=== PATIENT | female | born 1990 | race Caucasian/White ===

== ENCOUNTER 2021-11-01 08:47 | Emergency (ER) | payer OTHER ==
[~2021-11-01] VITALS: Ht 160 cm; Wt 70.5 kg
[2021-11-01] MEDS ORDERED: normal saline 1000ML IV soln IVB ONE (10:25)
[2021-11-01] MEDS ORDERED: ondansetron/PF 4mg/2ml inj IV ONE (10:25)
[2021-11-01 10:45] LABS: LYMPHOCYTES % (AUTO) 7.8 % (21-51)
[2021-11-01 10:46] LABS: BASOPHILS % (AUTO) 0.5 % (0-1); EOSINOPHILS % (AUTO) 0.2 % (0-6); HEMATOCRIT 44.2 % (35.0-45.0); HEMOGLOBIN 14.7 g/dl (12.0-16.0); LYMPHOCYTES # (AUTO) 0.6 X10'3 (1.1-4.8); MEAN CORPUSCULAR HEMOGLOBIN 31.7 PG (27.0-31.0); MEAN CORPUSCULAR HGB CONC 33.3 g/dL (33.0-36.5); MEAN CORPUSCULAR VOLUME 95.1 FL (78-98); MEAN PLATELET VOLUME 8.7 FL (7.4-10.4); MONOCYTES # (AUTO) 0.7 X10'3 (0-0.9); MONOCYTES % (AUTO) 10.1 % (2-12); NEUTROPHILS # (AUTO) 5.8 X10'3 (1.8-7.7); NEUTROPHILS % (AUTO) 81.4 % (42-75); PLATELET COUNT 224 X10'3 (140-440); RED BLOOD COUNT 4.64 X10'6 (4.20-5.60); WHITE BLOOD COUNT 7.1 X10'3 (4.5-11.0)
[2021-11-01 10:57] LABS: ANION GAP 14 (8-16); CHLORIDE 104 MMOL/L (99-107); POTASSIUM 3.7 MMOL/L (3.5-5.1); SODIUM 138 MMOL/L (135-145); TOTAL CARBON DIOXIDE 20.2 MMOL/L (24-32)
[2021-11-01 11:12] LABS: ALANINE AMINOTRANSFERASE 11 U/L (12-78); ALBUMIN 4.1 G/DL (3.4-5.0); ALBUMIN/GLOBULIN RATIO 0.9 (1.1-1.5); ALKALINE PHOSPHATASE 70 IU/L (46-116); ASPARTATE AMINO TRANSFERASE 15 U/L (10-37); BILIRUBIN,TOTAL 1.3 MG/DL (0.1-1.0); BLOOD UREA NITROGEN 10 MG/DL (7-18); BUN/CREATININE RATIO 13.7 (6.6-38.0); CALCIUM 9.1 MG/DL (8.5-10.1); CREATININE 0.73 MG/DL (0.40-0.90); GLUCOSE 91 MG/DL (70-104); TOTAL PROTEIN 8.6 G/DL (6.4-8.2); eGFR > 90 ML/MIN
[2021-11-01] MEDS ORDERED: famotidine/PF 10 mg/ml inj IV ONE (11:30)
[2021-11-01 11:47] VITALS: BP 107/64
[2021-11-01] MEDS ORDERED: ONDA4TAB12 PO (12:33)
== END 2021-11-01 13:04 | disposition home or self-care (01) ==
LOC: ER 08:48
DX: B34.9 Viral infection, unspecified (principal); R11.2 Nausea with vomiting, unspecified; Z20.822 Contact with and (suspected) exposure to COVID-19
CPT/HCPCS: 36415; 80053; 85025; 87502; 87503; 87635; 96361; 96374; 96375; 99284; C9803; J2405; J3490; J7030

== ENCOUNTER 2022-03-28 14:24 | Emergency (ER) | payer OTHER ==
[~2022-03-28] VITALS: Ht 160 cm; Wt 72.3 kg
[~2022-03-28 14:24] MED LIST: ONDA4TAB12 PO
[2022-03-28 15:00] VITALS: BP 112/78
[2022-03-28] MEDS ORDERED: BENZ-38 PO (19:01)
[2022-03-28] MEDS ORDERED: ONDA4TAB12 PO (19:01)
== END 2022-03-28 19:53 | disposition home or self-care (01) ==
LOC: ER 14:25
DX: B34.9 Viral infection, unspecified (principal); Z20.822 Contact with and (suspected) exposure to COVID-19
CPT/HCPCS: 71045; 87081; 87635; 87880; 99284; C9803